=== PATIENT | male | born 1995 | race Caucasian/White ===

== ENCOUNTER 2023-06-03 20:09 | Emergency (ER) | payer OTHER, SELFPAY ==
[2023-06-03 20:30] VITALS: BP 126/82; PULSE 94; RESP 15; TEMP 36.9; O2SAT 97
--- NOTE | 2023-06-03 23:38 | ED.HA ---
HPI - Headache General Chief Complaint: Headache Stated Complaint: Migraine Time Seen by Provider: 06/03/23 22:36 History of Present Illness HPI Narrative: 28-year-old male reported history of migraines presents to the emergency department for migraine. Patient states he has been having a light headache for the past couple days, however today 4 hours prior to arrival it became a full-blown migraine. Reports associated nausea, emesis and photophobia. States this has not migraines normally present. He took Excedrin around 7:00 p.m. without relief. Denies nuchal rigidity, fever, abdominal pain, recent injury or trauma, focal numbness or weakness. Related Data Allergies Allergy/AdvReac Type Severity Reaction Status Date / Time No Known Allergies Allergy Verified 06/03/23 20:10 Review of Systems Review of Systems: CONSTITUTIONAL: Denies fever, chills, or sweats. EYES: Denies visual changes, redness, or discharge. ENT: Denies rhinorrhea, congestion, sore throat, or otalgia. CARDIOVASCULAR: Denies chest pain, palpitations, or edema. RESPIRATORY: Denies cough or dyspnea. GASTROINTESTINAL: Denies abdominal pain, nausea, vomiting, or diarrhea. GENITOURINARY: Denies dysuria or hematuria. SKIN: Denies rash or itching. MUSCULOSKELETAL: Denies back pain, joint pain, or myalgia. NEUROLOGIC: See HPI PSYCHIATRIC: Denies anxiety or depression. Exam Narrative: GENERAL: Well-appearing, well-nourished, and in no acute distress. HEAD: Normocephalic, atraumatic. EYES: PERRLA and EOMI. ENT: Nares clear, no rhinorrhea or epistaxis. Mucous membranes moist. NECK: Supple. CHEST: Clear to auscultation. No respiratory distress. HEART: Regular rate and rhythm. No murmur heard. Normal peripheral pulses. ABDOMEN: Soft, nontender, nondistended, normal active bowel sounds. EXTREMITIES: Normal range of motion. No edema. SKIN: Warm, dry, no rash. NEURO: No focal deficits. Alert and oriented x3. Cranial nerves 2-12 intact. Strength 5/5 in BUE and BLE. Sensation intact throughout. Course Vital Signs Vital signs: Vital Signs Temperature 98.4 F 06/03/23 20:30 Pulse Rate 94 06/03/23 20:30 Respiratory Rate 15 06/03/23 20:30 Blood Pressure 126/82 06/03/23 20:30 Pulse Oximetry 97 06/03/23 20:30 Oxygen Delivery Room Air 06/03/23 20:30 Temperature 98.4 F 06/03/23 20:30 Pulse Rate 94 06/03/23 20:30 Respiratory Rate 15 06/03/23 20:30 Blood Pressure 126/82 06/03/23 20:30 Pulse Oximetry 97 06/03/23 20:30 Oxygen Delivery Room Air 06/03/23 20:30 MDM - Headache MDM Narrative Medical decision making narrative: 28-year-old male with a history of migraines presents to the emergency department for evaluation for a migraine. See HPI for further history. Vitals are stable. Patient is neurovascularly intact. No nuchal rigidity. States this migraine is similar to baseline migraines. Patient received a headache cocktail and fluids with significant improvement. Will discharge home with PCP follow-up. Strict ED return precautions discussed. He is agreeable to plan verbalized understanding. Discharged in stable condition. Discharge Plan Discharge Clinical Impression: Migraine Qualifiers: Migraine type: unspecified Status migrainosus presence: with status migrainosus Intractability: intractable Qualified Code(s): G43.911 - Migraine, unspecified, intractable, with status migrainosus Patient Disposition: Home, Self-Care Condition: Stable Instructions: Antibiotic Form, Migraine Headache (ED) Additional Instructions: Your evaluated in the emergency department for headache. Your exam is reassuring. Her symptoms seem consistent with her migraines. Your treated with IV fluids and headache cocktail with improvement. Please follow-up your primary care provider. Return to the emergency department if you develop significantly worsening pain, vision changes, focal numbness or weakness, fever, neck stiffn
[2023-06-04] MEDS: SODIUM CHLORIDE 0.9% IV 1,000 ML 999 ML IV CONT (00:17)
[2023-06-04] MEDS: diphenhydrAMINE HCl INJ 50 MG/ML VIAL 25 MG IV PUSH (00:17)
[2023-06-04] MEDS: KETOROLAC 15 MG/ML VIAL (*BKC) IV PUSH (00:21)
[2023-06-04] MEDS: PROCHLORPERAZINE EDISYLATE 10 MG/2 ML VIAL IV PUSH (00:22)
== END 2023-06-04 01:14 | disposition home or self-care (01) ==
PROVIDERS: Emergency Provider Physician Assistant
DX: G43.911 Migraine, unspecified, intractable, with status migrainosus (principal)
CPT/HCPCS: 96361; 96374; 96375; 99284; J0780; J1200; J1885; J7030